=== PATIENT | male | born 1940 | race Caucasian/White ===

== ENCOUNTER 2021-07-15 13:13 | Outpatient (CLI) | payer MEDICARE ==
[~2021-07-15 13:13] MED LIST: BARIUM SULFATE 340 ML SUSP.RECON***PROCEDURE AREA ONLY**DONT ENTER PO ONE
== END 2021-07-15 23:59 | disposition home or self-care (01) ==
LOC: RAD 13:13
PROVIDERS: ATTEND Family Medicine
DX: R13.12 Dysphagia, oropharyngeal phase (principal); R49.0 Dysphonia
CPT/HCPCS: 74230

== ENCOUNTER 2021-12-15 08:42 | Day surgery (SDC) | payer MEDICARE ==
[2021-12-11 13:31] LABS: BASOPHILS % (AUTO) 0.4 % (0-1); EOSINOPHILS # (AUTO) 0.2 X10'3 (0-0.9); EOSINOPHILS % (AUTO) 2.6 % (0-6); LYMPHOCYTES # (AUTO) 2.1 X10'3 (1.1-4.8); LYMPHOCYTES % (AUTO) 25.7 % (21-51); MEAN CORPUSCULAR HEMOGLOBIN 31.5 PG (27.0-31.0); MEAN CORPUSCULAR HGB CONC 33.6 g/dL (33.0-36.5); MEAN CORPUSCULAR VOLUME 93.7 FL (78-98); MEAN PLATELET VOLUME 8.5 FL (7.4-10.4); MONOCYTES # (AUTO) 0.7 X10'3 (0-0.9); MONOCYTES % (AUTO) 8.8 % (2-12); NEUTROPHILS % (AUTO) 62.5 % (42-75); PRE OP HEMATOCRIT 40.2 % (42.0-52.0); PRE OP HEMOGLOBIN 13.5 g/dL (14.0-17.9); PRE OP PLATELET COUNT 222 X10'3 (140-440); RED BLOOD COUNT 4.29 X10'6 (4.70-6.10); RED CELL DISTRIBUTION WIDTH 13.6 % (11.5-14.5)
[2021-12-11 14:00] LABS: ALBUMIN 3.6 G/DL (3.4-5.0); ALBUMIN/GLOBULIN RATIO 0.8 (1.1-1.5); ALKALINE PHOSPHATASE 68 IU/L (46-116); BLOOD UREA NITROGEN 17 MG/DL (7-18); BUN/CREATININE RATIO 13.3 (5.4-32.0); CALCIUM 9.5 MG/DL (8.5-10.1); CHLORIDE 103 MMOL/L (99-107); CREATININE 1.28 MG/DL (0.60-1.10); PRE OP ALT 17 U/L (30-65); PRE OP ANION GAP 8 (8-16); PRE OP AST 17 U/L (10-37); PRE OP BILIRUB, TOTAL 0.4 MG/DL (0.0-1.0); PRE OP GLUCOSE 83 MG/DL (70-104); PRE OP POTASSIUM 3.9 MMOL/L (3.4-5.1); PRE OP SODIUM 140 MMOL/L (135-145); TOTAL CARBON DIOXIDE 29.1 MMOL/L (24-32); TOTAL PROTEIN 8.2 G/DL (6.4-8.2); eGFR 54 ML/MIN
[~2021-12-15] VITALS: Ht 180.3 cm; Wt 69.4 kg
[2021-12-15] VITALS (18 sets, daily range): BP systolic 131–161; BP diastolic 70–95
[~2021-12-15 08:42] MED LIST changes: -BARIUM SULFATE 340 ML SUSP.RECON***PROCEDURE AREA ONLY**DONT ENTER PO ONE; +LORA-269 PO; +ceFAZolin inj. 2,000 MG in dextrose 5%-water 100 ML IV ONE; +famotidine 20mg tablet PO ONE; +meperidine/PF 25mg/ml syringe IV PRN; +morphine 2 MG/ML inj. syringe IV PRN; +morphine 4 MG/ML inj SYRINge IV PRN; +ondansetron/PF 4mg/2ml inj IV PRN; +proCHLORperazine 10 MG/2 ml inj IV PRN; +ringers solution, lacted 1,000 ML IV SCH
[2021-12-15] MEDS ORDERED: midazolam 1 mg/ML 2ml injection ONE (10:36)
[2021-12-15] MEDS ORDERED: fentaNYL/PF 50MCG/1 ML 2ML syringe ONE (10:36)
[2021-12-15] MEDS ORDERED: LIDOcaine 1% 30ml preserv. free vial ONE (10:51)
[2021-12-15] MEDS ORDERED: BUPIVAcaine 0.5% inj/PF 30 ML ONE ×2 (10:51→10:54)
[2021-12-15] MEDS ORDERED: BUPIVACAINE liposomal/PF 13.3 MG/ML vial IM ONE (10:54)
[2021-12-15] MEDS ORDERED: neostigmine methylsulfate 1 MG/ML 10ml vial ONE (10:58)
[2021-12-15] MEDS ORDERED: dexamethasone sod phosphate 10mg/ml inj ONE (10:58)
[2021-12-15] MEDS ORDERED: sevoflurane 250ml liquid IH ONE (10:58)
[2021-12-15] MEDS ORDERED: LIDOcaine 1% (10mg/ml)w/preservative inj. 20ml MDV ONE (10:58)
[2021-12-15] MEDS ORDERED: glycopyrrolate 0.2mg/ml inj ONE (10:58)
[2021-12-15] MEDS ORDERED: rocuronium 10mg/ml inj IV ONE (11:20)
[2021-12-15] MEDS ORDERED: propofol inj 20 ML IV ONE (11:20)
[2021-12-15] MEDS ORDERED: acetaminophen 1,000mg/100ml IV 100 ML IV ONE (12:17)
[2021-12-15] MEDS ORDERED: ondansetron/PF 4mg/2ml inj ONE (12:18)
--- NOTE | 2021-12-15 12:37 | NUR ---
Received from OR via [facility] , accompanied by Anesthesiologist DR RUEDA and report given by Anesthesiolgist. PT PRESNTS WITH PIV 20G LEFT HAND, ABD DRESSING CDI, VSS. Addendum: 12/15/21 at 1300 by Liat Ramos RN, RN Amended: Links added.
[2021-12-15] MEDS ORDERED: oxyCODONE/APAP 5-325mg tablet PO PRN (12:40)
--- NOTE | 2021-12-15 15:00 | NUR ---
PT URINATED 1,000 MLS IN URINAL AND UP TO TOILET WHERE PT URINATED AGAIN. Addendum: 12/15/21 at 1521 by Liat Ramos RN RN Amended: Links added.
--- NOTE | 2021-12-15 15:07 | NUR ---
PT HAS MET ALL DC CRITERIA, IV DC'D WITH CANULA INTACT. PT URINATED 1,000 MLS IN URINAL THEN ONCE AGAIN IN TOILET. DC INSTRUCTIONS REVIEWED WITH PT, PT VERBLAIZED UNDERSTANDING ALONG WITH DC INSTRUCTIONS TO DAUGHTER CHELLE. PT TAKEN OUT IN WHEELCHAIR TO PARKING LOT WHERE DAUGHTER DROVE PT HOME. Addendum: 12/15/21 at 1527 by Liat Ramos RN, RN Amended: Links added.
== END 2021-12-15 15:07 | disposition home or self-care (01) ==
LOC: PAS 08:42
PROVIDERS: ATTEND Surgery
DX: K43.2 Incisional hernia without obstruction or gangrene (principal); F41.9 Anxiety disorder, unspecified; I25.2 Old myocardial infarction; I25.10 Atherosclerotic heart disease of native coronary artery without angina pectoris; I48.92 Unspecified atrial flutter; Z85.038 Personal history of other malignant neoplasm of large intestine; Z79.899 Other long term (current) drug therapy; Z90.49 Acquired absence of other specified parts of digestive tract; Z72.89 Other problems related to lifestyle; Z20.822 Contact with and (suspected) exposure to COVID-19; Z98.890 Other specified postprocedural states; Z87.891 Personal history of nicotine dependence; Z95.5 Presence of coronary angioplasty implant and graft; Z82.49 Family history of ischemic heart disease and other diseases of the circulatory system
CPT/HCPCS: 36415; 49654; 64488; 80053; 82948; 85025; 87635; 93005; C1781; C9290; C9803; J0131; J0690; J1100; J2250; J2405; J2704; J2710; J3010; J3490; J7030; J7060; J7120; S0020; Z7506; Z7508; Z7512; A4215; A4618

== ENCOUNTER 2021-12-18 01:40 | Emergency (ER) | payer MEDICARE ==
[~2021-12-18] VITALS: Ht 180.3 cm; Wt 77.3 kg
[~2021-12-18 01:40] MED LIST changes: -ceFAZolin inj. 2,000 MG in dextrose 5%-water 100 ML IV ONE; -famotidine 20mg tablet PO ONE; -meperidine/PF 25mg/ml syringe IV PRN; -morphine 2 MG/ML inj. syringe IV PRN; -morphine 4 MG/ML inj SYRINge IV PRN; -ondansetron/PF 4mg/2ml inj IV PRN; -proCHLORperazine 10 MG/2 ml inj IV PRN; -ringers solution, lacted 1,000 ML IV SCH
[2021-12-18] MEDS ORDERED: normal saline 1000ML IV soln IVB ONE (03:15)
[2021-12-18] MEDS ORDERED: ondansetron/PF 4mg/2ml inj IV ONE (03:45)
[2021-12-18 03:48] LABS: BASOPHILS % (AUTO) 0.1 % (0-1); EOSINOPHILS % (AUTO) 0.4 % (0-6); HEMATOCRIT 40.7 % (42.0-52.0); LYMPHOCYTES # (AUTO) 1.2 X10'3 (1.1-4.8); LYMPHOCYTES % (AUTO) 11.2 % (21-51); MEAN CORPUSCULAR HEMOGLOBIN 32.1 PG (27.0-31.0); MEAN CORPUSCULAR HGB CONC 34.5 g/dL (33.0-36.5); MEAN CORPUSCULAR VOLUME 92.9 FL (78-98); MEAN PLATELET VOLUME 8.7 FL (7.4-10.4); MONOCYTES # (AUTO) 0.9 X10'3 (0-0.9); MONOCYTES % (AUTO) 8.3 % (2-12); NEUTROPHILS # (AUTO) 8.4 X10'3 (1.8-7.7); PLATELET COUNT 242 X10'3 (140-440); RED BLOOD COUNT 4.37 X10'6 (4.70-6.10); RED CELL DISTRIBUTION WIDTH 12.9 % (11.5-14.5); WHITE BLOOD COUNT 10.5 X10'3 (4.5-11.0)
[2021-12-18 04:04] LABS: ALANINE AMINOTRANSFERASE 13 U/L (12-78); ALBUMIN 3.3 G/DL (3.4-5.0); ALBUMIN/GLOBULIN RATIO 0.8 (1.1-1.5); ALKALINE PHOSPHATASE 60 IU/L (46-116); ANION GAP 8 (8-16); ASPARTATE AMINO TRANSFERASE 19 U/L (10-37); BILIRUBIN,TOTAL 0.8 MG/DL (0.1-1.0); BLOOD UREA NITROGEN 22 MG/DL (7-18); BUN/CREATININE RATIO 17.1 (5.4-32.0); CALCIUM 10.2 MG/DL (8.5-10.1); CHLORIDE 97 MMOL/L (99-107); CREATININE 1.29 MG/DL (0.60-1.10); GLUCOSE 154 MG/DL (70-104); POTASSIUM 3.8 MMOL/L (3.5-5.1); SODIUM 133 MMOL/L (135-145); TOTAL CARBON DIOXIDE 28.5 MMOL/L (24-32); TOTAL PROTEIN 7.7 G/DL (6.4-8.2); eGFR 53 ML/MIN
[2021-12-18 04:16] VITALS: BP 122/58
[2021-12-18] MEDS ORDERED: ketorolac trometh. 30mg/ml inj. IV ONE (04:20)
[2021-12-18] MEDS ORDERED: ONDA4TAB12 PO (05:01)
== END 2021-12-18 05:18 | disposition home or self-care (01) ==
LOC: ER 01:40
DX: R10.84 Generalized abdominal pain (principal); R14.0 Abdominal distension (gaseous); R11.2 Nausea with vomiting, unspecified; K59.00 Constipation, unspecified; Z98.890 Other specified postprocedural states; Z79.899 Other long term (current) drug therapy
CPT/HCPCS: 36415; 80053; 85025; 96361; 96374; 96375; 99284; J1885; J2405; J7030

== ENCOUNTER 2021-12-19 14:12 | Emergency (ER) | payer MEDICARE ==
[~2021-12-19] VITALS: Ht 180.3 cm; Wt 77.3 kg
[~2021-12-19 14:12] MED LIST changes: +ONDA4TAB12 PO
[2021-12-19 16:11] LABS: BASOPHILS % (AUTO) 0.2 % (0-1); EOSINOPHILS # (AUTO) 0.1 X10'3 (0-0.9); EOSINOPHILS % (AUTO) 1.1 % (0-6); HEMATOCRIT 41.4 % (42.0-52.0); HEMOGLOBIN 14.3 g/dl (14.0-17.9); LYMPHOCYTES # (AUTO) 1.2 X10'3 (1.1-4.8); LYMPHOCYTES % (AUTO) 10.9 % (21-51); MEAN CORPUSCULAR HEMOGLOBIN 32.7 PG (27.0-31.0); MEAN CORPUSCULAR HGB CONC 34.5 g/dL (33.0-36.5); MEAN CORPUSCULAR VOLUME 94.6 FL (78-98); MEAN PLATELET VOLUME 8.7 FL (7.4-10.4); MONOCYTES # (AUTO) 0.8 X10'3 (0-0.9); MONOCYTES % (AUTO) 6.9 % (2-12); NEUTROPHILS # (AUTO) 8.8 X10'3 (1.8-7.7); NEUTROPHILS % (AUTO) 80.9 % (42-75); PLATELET COUNT 251 X10'3 (140-440); RED BLOOD COUNT 4.37 X10'6 (4.70-6.10); RED CELL DISTRIBUTION WIDTH 13.4 % (11.5-14.5); WHITE BLOOD COUNT 10.9 X10'3 (4.5-11.0)
[2021-12-19 16:28] LABS: ALANINE AMINOTRANSFERASE 18 U/L (12-78); ALBUMIN 3.3 G/DL (3.4-5.0); ALBUMIN/GLOBULIN RATIO 0.8 (1.1-1.5); ALKALINE PHOSPHATASE 58 IU/L (46-116); ANION GAP 8 (8-16); ASPARTATE AMINO TRANSFERASE 16 U/L (10-37); BILIRUBIN,TOTAL 0.5 MG/DL (0.1-1.0); BLOOD UREA NITROGEN 19 MG/DL (7-18); BUN/CREATININE RATIO 14.6 (5.4-32.0); CALCIUM 9.7 MG/DL (8.5-10.1); CHLORIDE 101 MMOL/L (99-107); GLUCOSE 122 MG/DL (70-104); POTASSIUM 3.9 MMOL/L (3.5-5.1); SODIUM 137 MMOL/L (135-145); TOTAL CARBON DIOXIDE 27.9 MMOL/L (24-32); TOTAL PROTEIN 7.5 G/DL (6.4-8.2); eGFR 53 ML/MIN
[2021-12-19] MEDS ORDERED: ondansetron 4mg rapidly disintigrating tab PO ONE (17:50)
[2021-12-19] MEDS ORDERED: pantoprazole 40mg Tablet.DR PO SCH (17:50)
[2021-12-19] MEDS ORDERED: normal saline 1000ml 1,000 ML IV ONE (17:50)
[2021-12-19 18:11] VITALS: BP 133/73
[2021-12-19 19:00] LABS: CLARITY,URINE CLEAR (Clear); COLOR,URINE YELLOW (Yellow); GLUCOSE, URINE NEGATIVE (Neg); KETONES,URINE 15 mg/dl (Neg); LEUKOCYTE ESTERASE ,URINE NEGATIVE (Neg); NITRITES, URINE NEGATIVE (Neg); OCCULT BLOOD,URINE NEGATIVE (Neg); PROTEIN,URINE NEGATIVE (Neg); UROBILINOGEN,URINE 0.2 E.U/dL (0.2-1.0)
[2021-12-19 19:04] LABS: UA COLLECTION TYPE CLN CATCH MIDSTREAM
== END 2021-12-19 19:34 | disposition home or self-care (01) ==
LOC: ER 14:13
DX: L76.82 Other postprocedural complications of skin and subcutaneous tissue (principal); R12 Heartburn; R53.1 Weakness; K92.0 Hematemesis; Z98.890 Other specified postprocedural states; Z79.899 Other long term (current) drug therapy
CPT/HCPCS: 36415; 74018; 80053; 81003; 85025; 96360; 99284; J7030